=== PATIENT | female | born 1990 ===

== ENCOUNTER 2022-04-30 16:20 | Outpatient (REF) | payer MEDICAID, SELFPAY ==
[2022-04-30 21:11] LABS: HCT 39.1 % (36.0-46.0); HGB 12.7 g/dL (11.2-15.7); MCH 29.2 pg (27.0-33.0); MCHC 32.5 % (32.0-36.0); MCV 90 fL (80-95); MPV 10.1 fL (8.0-11.0); Platelet Count 432 10^3/uL (130-400); RBC 4.35 10^6/uL (3.93-5.22); RDW 13.1 % (11.7-14.6); RDW-SD 43.1 fL; WBC 10.26 10^3/uL (4.4-10.8)
[2022-04-30 21:24] LABS: ALT 20 U/L (14-59); AST 20 U/L (15-37); Albumin 4.1 g/dL (3.4-5.0); Alkaline Phosphatase 115 U/L (46-116); Anion Gap 7.7 mmol/L (3-11); BUN 13 mg/dL (7-18); Bilirubin, Total 0.4 mg/dL (0.2-1.0); CO2 29.3 mmol/L (21.0-32.0); CREATININE 0.8 mg/dL (0.55-1.02); Calcium 9.8 mg/dL (8.5-10.1); Chloride 102 mmol/L (98-107); Estimated GFR 101.59 (mL/min/1.73m2); Glucose 79 mg/dL (74-106); Lipase 130 U/L (73-393); Potassium 3.7 mmol/L (3.5-5.1); Sodium 139 mmol/L (136-145); Total Protein 8.3 g/dL (6.4-8.2)
== END 2022-04-30 16:21 | disposition home or self-care (01) ==
LOC: NCHCN 16:20
PROVIDERS: Visit Provider Nurse Practitioner Family
DX: R10.9 Unspecified abdominal pain (principal)
CPT/HCPCS: 80053; 83690; 85027